=== PATIENT | male | born 1975 | race Caucasian/White ===

== ENCOUNTER 2021-04-01 04:00 | Emergency (ER) | payer MEDICAID, SELFPAY ==
[2021-04-01 04:14] VITALS: BP 131/93; PULSE 104; RESP 16; TEMP 36.6; O2SAT 97; BMI 27.3
[2021-04-01 04:16] LABS: Glucose, Whole Blood 133 mg/dL (60-115)
[2021-04-01 04:20] LABS: Basophils Percent Auto 0.4 % (0-2); Eosinophils Absolute Auto 0.3 X10*3/uL (0.0-0.4); Hematocrit 46.8 % (42.0-52.0); Hemoglobin 15.8 g/dl (14.0-18.0); Imm Gran Abs Auto 0.02 X10*3/uL (0.00-0.03); Imm Gran Pct Auto 0.2 % (0.0-0.4); Lymphocytes Absolute Auto 1.5 X10*3/uL (1.2-4.9); Lymphocytes Percent Auto 18.2 % (20-40); MANUAL DIFF FLAG NO; Mean Corpuscular HGB Conc 33.8 g/dl (31.0-36.0); Mean Corpuscular Hemoglobin 30.5 pg (27.0-33.0); Mean Corpuscular Volume 90.3 fL (80.0-98.0); Mean Platelet Volume 8.9 fL (9.4-12.4); Monocytes Absolute Auto 0.7 X10*3/uL (0.1-1.2); Monocytes Percent Auto 8.3 % (2-11); Neutrophils Absolute Auto 5.8 x10*3/uL (2.0-8.3); Neutrophils Percent Auto 69.9 % (45-73); Platelet Count 269 X10*3/uL (160-400); Red Blood Count 5.18 X10*6/uL (4.60-5.80); Red Cell Distribution Width 13.5 % (11.0-16.0); White Blood Count 8.3 X10*3/uL (4.8-10.8)
[2021-04-01 04:36] LABS: Ethanol < 10 mg/dL
[2021-04-01 04:44] LABS: Alanine Aminotransferase 18 U/L (0-40); Albumin Level 4.4 g/dL (3.5-5.0); Alkaline Phosphatase 80 U/L (39-117); Anion Gap 15 (12-20); Aspartate Amino Transferase 34 U/L (5-37); Bilirubin Total 0.8 mg/dL (0.0-1.0); Blood Urea Nitrogen 14 mg/dL (9-16); Calcium 9.4 mg/dL (8.4-10.2); Carbon Dioxide 27 mmol/L (22-29); Chloride 100 mmol/L (96-108); Creatinine Clr Calc Pharmacy 100.3; Estimated Glomerular Filt Rate > 60; Glucose Random 120 mg/dL (60-115); Potassium 3.6 mmol/L (3.3-5.1); Sodium 138 mmol/L (135-145)
--- NOTE | 2021-04-01 06:02 | ED_ITS ---
HPI - General Adult General Chief complaint: Altered Mental Status Time Seen by Provider: 04/01/21 04:47 Source: patient Mode of arrival: EMS History of Present Illness HPI narrative: 46-year-old male with history of gastric sleeve and states that he was drinking alcohol and taking Ambien this evening and says that he was a little bit out of it but otherwise denies any recent fever, chills, nausea, vomiting, abdominal pain or diarrhea. Patient denies any history of diabetes. EMS reports that patient was found on the street by police ?seeming off?. Related Data Allergies Allergy/AdvReac Type Severity Reaction Status Date / Time No Known Allergies Allergy Verified 04/01/21 04:19 [No Known Allergies*] Review of Systems Review of Systems: Pertinent positives and negatives as stated in HPI 10 point review of systems is otherwise negative. PMFSH Past Medical History Source: nursing notes reviewed Social History Social History Advance Directives: No Physical Exam ED Vital Signs: Vital Signs - 24 hr 04/01/21 04:14 Temperature 98 F Pulse Rate 104 H Respiratory Rate 16 Blood Pressure 131/93 H Pulse Oximetry 97 BMI result Body Mass Index 27.3 VITAL SIGNS: Reviewed. GENERAL: Well developed, well nourished, in no acute distress. HEAD: Normocephalic/atraumatic EYES: PERRLA, EOMI EARS: Ext canals without abnormality OROPHARYNX: no oral lesions noted, posterior pharynx clear LUNGS: Normal breath sounds. No adventitious sounds or accessory muscle use. SpO2<97> CARDIOVASCULAR: Regular rate and rhythm without noted murmurs, no JVD or lower extremity edema. ABDOMEN: Soft, non-tender, non-distended with bowel sounds. MUSCULOSKELETAL: No tenderness, deformities, or effusions noted on gross inspection. EXTREMITIES: No cyanosis, clubbing or edema. SKIN: Inspection of the skin reveals no rashes, NEUROLOGIC: Alert and oriented x 4. Strength and sensation to light touch were grossly intact x 4. Course Course Course Narrative: 46-year-old male with history and clinical presentation consistent with mixture of Ambien and alcohol likely leading to mild altered mental status and given underlying bariatric surgery may have experienced a decrease in blood sugar. Patient is otherwise alert and oriented, denies any constitutional symptoms and on review of all investigations there are no acute findings and patient is otherwise discharged home in stable condition, tolerating oral intake. Medical Decision Making Lab Data Result diagrams: 04/01/21 04:15 04/01/21 04:15 Labs: Lab Results 04/01/21 04/01/21 04/01/21 Range/Units 04:11 04:15 04:15 WBC 8.3 (4.8-10.8) X10*3/uL RBC 5.18 (4.60-5.80) X10*6/uL Hgb 15.8 (14.0-18.0) g/dl Hct 46.8 (42.0-52.0) % MCV 90.3 (80.0-98.0) fL MCH 30.5 (27.0-33.0) pg MCHC 33.8 (31.0-36.0) g/dl RDW 13.5 (11.0-16.0) % Plt Count 269 (160-400) X10*3/uL MPV 8.9 L (9.4-12.4) fL Immature Gran % (Auto) 0.2 (0.0-0.4) % Neut % (Auto) 69.9 (45-73) % Lymph % (Auto) 18.2 L (20-40) % Falls % (Auto) 8.3 (2-11) % Eos % (Auto) 3.0 (0-4) % Baso % (Auto) 0.4 (0-2) % Lymph # (Auto) 1.5 (1.2-4.9) X10*3/uL Falls # (Auto) 0.7 (0.1-1.2) X10*3/uL Eos # (Auto) 0.3 (0.0-0.4) X10*3/uL Baso # (Auto) 0.0 (0.0-0.2) X10*3/uL Abs Immat Gran (auto) 0.02 (0.00-0.03) X10*3/uL Absolute Neuts (auto) 5.8 (2.0-8.3) x10*3/uL Absolute Nucleated RBC 0.000 (0.0-0.012) X10*3/uL Nucleated RBC % (auto) 0.0 (0.0-0.2) /100WBC Sodium 138 (135-145) mmol/L Potassium 3.6 (3.3-5.1) mmol/L Chloride 100 (96-108) mmol/L Carbon Dioxide 27 (22-29) mmol/L Anion Gap 15 (12-20) BUN 14 (9-16) mg/dL Creatinine 0.88 (0.5-1.4) mg/dL Estim Creat Clear Calc 100.3 Estimated GFR > 60 POC Glucose 133 H (60-115) mg/dL Random Glucose 120 H (60-115) mg/dL Calcium 9.4 (8.4-10.2) mg/dL Total Bilirubin 0.8 (0.0-1.0) mg/dL AST 34 (5-37) U/L ALT 18 (0-40) U/L Alkaline Phosphatase 80 (39-117) U/L Total Protein 7.0 (6.5-8.0) g/dL Albumin 4.4 (3.5-5.0) g/dL Ethyl Alcohol mg/dL 04/01/21 Range/Units 04:15 WBC (4.8-10.8) X10*3/uL RBC (4.60-5.80) X10*6/uL Hgb (14.0-18.0) g/dl Hct (42.0-52.0) % MCV (80.0-98.0) fL MCH (27.0-33.0) pg MCHC (31.0-36.0) g/dl RDW (11.0-16.0) % Plt Count (160-400) X10*3/uL MPV (9.4-12.4) fL Immature Gran % (Auto) (0.0-0.4) % Neut % (Auto) (45-73) % Lymph % (Auto) (20-40) % Falls % (Auto) (2-11) % Eos % (Auto) (0-4) % Baso % (Auto) (0-2) % Lymph # (Auto) (1.2-4.9) X10*3/uL Falls # (Auto) (0.1-1.2) X10*3/uL Eos # (Auto) (0.0-0.4) X10*3/uL Baso # (Auto) (0.0-0.2) X10*3/uL Abs Immat Gran (auto) (0.00-0.03) X10*3/uL Absolute Neuts (auto) (2.0-8.3) x10*3/uL Absolute Nucleated RBC (0.0-0.012) X10*3/uL Nucleated RBC % (auto) (0.0-0.2) /100WBC Sodium (135-145) mmol/L Potassium (3.3-5.1) mmol/L Chloride (96-108) mmol/L Carbon Dioxide (22-29) mmol/L Anion Gap (12-20) BUN (9-16) mg/dL Creatinine (0.5-1.4) mg/dL Estim Creat Clear Calc Estimated GFR POC Glucose (60-115) mg/dL Random Glucose (60-115) mg/dL Calcium (8.4-10.2) mg/dL Total Bilirubin (0.0-1.0) mg/dL AST (5-37) U/L ALT (0-40) U/L Alkaline Phosphatase (39-117) U/L Total Protein (6.5-8.0) g/dL Albumin (3.5-5.0) g/dL Ethyl Alcohol < 10 mg/dL Discharge Plan Discharge Clinical Impression: Change in mental status, Ambien use disorder, mild, Alcohol intake above recommended sensible limits, Hypoglycemia Patient Disposition: Home, Self-Care Instructions: Non-diabetic Hypoglycemia (ED) Additional Instructions: 1. Resume all home medications as prescribed. Avoid mixing alcohol and Ambien. 2. Follow-up with your primary care provider for further workup and evaluation of your episode of low blood sugar. Return to the ER from worsening symptoms.
== END 2021-04-01 06:20 | disposition home or self-care (01) ==
PROVIDERS: Emergency Provider Student in an Organized Health Care Education/Training Program
DX: R41.82 Altered mental status, unspecified (principal); E16.2 Hypoglycemia, unspecified; F10.20 Alcohol dependence, uncomplicated; Y90.0 Blood alcohol level of less than 20 mg/100 ml; Z98.84 Bariatric surgery status; Z79.899 Other long term (current) drug therapy
CPT/HCPCS: 36415; 80053; 82077; 82947; 85025; 99283

== ENCOUNTER 2022-03-15 11:09 | Emergency (ER) | payer MEDICAID, SELFPAY ==
[2022-03-15 11:23] VITALS: BP 135/90; BP 150/82; PULSE 90; PULSE 94; RESP 18; TEMP 37.1; O2SAT 100; BMI 23.2
[2022-03-15 14:45] VITALS: BP 105/64; PULSE 74; RESP 18; O2SAT 96
--- NOTE | 2022-03-15 14:45 | PC.NURSE ---
patient sleeping. chest rise and fall equal and unlabored.
--- NOTE | 2022-03-15 14:52 | ED.OVERDOSE ---
HPI - Overdose General Chief Complaint: ETOH/Substance Use Stated Complaint: HEROIN USE,NOT OD,WANTS EVAL,NO NARCAN PER EMS Time Seen by Provider: 03/15/22 13:02 Source: patient Mode of arrival: EMS History of Present Illness HPI Narrative: 47-year-old male who is brought in by EMS for apparent overdose. He denies any suicidal ideation and is declining any detox at this time. He states that he simply ?over did it?. Related Data Allergies Allergy/AdvReac Type Severity Reaction Status Date / Time No Known Allergies Allergy Verified 03/15/22 11:26 [No Known Allergies*] Review of Systems Review of Systems: Pertinent positives and negatives as stated in HPI PMFSH Past Medical History Source: nursing notes reviewed Physical Exam Vital Signs: Vital Signs: Last Vital Signs Temp 98.7 F 03/15/22 11:23 Pulse 74 03/15/22 14:45 Resp 18 03/15/22 14:45 BP 105/64 03/15/22 14:45 Pulse Ox 96 03/15/22 14:45 O2 Del Method 03/15/22 14:45 BMI result Body Mass Index 23.2 VITAL SIGNS: Reviewed. GENERAL: Well developed, well nourished, in no acute distress. HEAD: Normocephalic/atraumatic EYES: PERRLA, EOMI EARS: Ext canals without abnormality NOSE: Nares patent bilateral OROPHARYNX: no oral lesions noted, posterior pharynx clear NECK: Supple, no adenopathy LUNGS: Normal breath sounds. No adventitious sounds or accessory muscle use. SpO2<96> CARDIOVASCULAR: Regular rate and rhythm without noted murmurs ABDOMEN: Soft, non-tender, non-distended with bowel sounds. MUSCULOSKELETAL: No tenderness, deformities, or effusions noted on gross inspection. EXTREMITIES: No cyanosis, clubbing or edema. SKIN: Inspection of the skin reveals no rashes NEUROLOGIC: Alert and oriented x 3. Strength and sensation to light touch were grossly intact x 4. Medical Decision Making Medical Decision Making MDM Narrative: 47-year-old male with accidental overdose with heroin, no intent for self-harm, and is declined detox at this time. He is otherwise hemodynamically stable and will be sent home with home Narcan. Differential Diagnosis Differential Diagnoses: The differential diagnosis associated with the presentation includes Please see the discussion above External Record Review External record reviewed: Outpatient record and Prior outpatient labs Discharge Plan Discharge Clinical Impression: Heroin overdose Patient Disposition: Home, Self-Care Instructions: Adult Overdose (ED) Additional Instructions: If at any time you wish to pursue detox please do not hesitate to return here and we will help you.
--- NOTE | 2022-03-15 15:10 | MHC.RECOVRN ---
This content writer met w/ patient, patient sleeping in bed, patient awake to verbal stimuli. Patient reports primary substance is ETOH, patient states occasionally uses 1/2 bag heroin IN. Patient reports drinking 1 pint ETOH daily. Patient states has a hx of ETOH withdrawals, tremor, anxiety. Patient reports no overdoses. Patient declines detox at this time. This content writer and patient discussed harm reduction strategies, overdose prevention, detox, medications. Patient verbalized understanding. Resources left at bedside.
[2022-03-15] MEDS: Naloxone HCl Nasal TAKE HOME 4 MG SPRAY NOSTRILALT (15:33)
== END 2022-03-15 16:07 | disposition home or self-care (01) ==
PROVIDERS: Emergency Provider Student in an Organized Health Care Education/Training Program
DX: F11.988 Opioid use, unspecified with other opioid-induced disorder (principal); T40.1X1A Poisoning by heroin, accidental (unintentional), initial encounter; Y92.9 Unspecified place or not applicable
CPT/HCPCS: 99283

== ENCOUNTER 2022-12-31 04:40 | Emergency (ER) | payer MEDICAID, SELFPAY ==
--- NOTE | ~2022-12-31 | XR_ITS ---
EXAMINATION: XR HIP, RIGHT , AP pelvis CLINICAL INFORMATION: Fall COMPARISON: None available at the time of this dictation. TECHNIQUE: Frontal and lateral views of the hip acquired. , AP pelvis FINDINGS: There is no evidence of acute fracture or dislocation. There are mild degenerative arthritic changes of the hip evident by sclerotic changes of the acetabular roof and narrowing of the joint space. Mild degenerative changes of the symphysis pubis. Mild degenerative changes of the SI joints. Adjacent pubic rami are intact. Surrounding soft tissues are unremarkable. XR/XR hip RT w [id number] IMPRESSION: Mild degenerative arthritis. No fracture
[2022-12-31 04:56] VITALS: BP 140/98; PULSE 72; O2SAT 95; BMI 24.2
[2022-12-31 04:59] VITALS: BP 128/77; PULSE 92; RESP 18; TEMP 37.1; O2SAT 97
--- NOTE | 2022-12-31 04:59 | ED.EXTPRO ---
HPI - Extremity Problem General Chief complaint: Fall Stated complaint: leg pain Time Seen by Provider: 12/31/22 04:59 Source: patient Mode of arrival: ambulatory Limitations: no limitations History of Present Illness HPI Narrative: Patient's history of heroin and alcohol abuse was going upstairs at work 5 days ago when noticed pain in the right hip rating down to the knee no back pain no injury patient did not fall says that pain increases on ambulate and is not getting better Related Data Previous Rx's Medication Instructions Recorded cyclobenzaprine 10 mg tablet 10 mg PO Q8H #20 tabs 12/31/22 ibuprofen 600 mg tablet 600 mg PO Q6H PRN fever or pain 12/31/22 #30 tabs Allergies Allergy/AdvReac Type Severity Reaction Status Date / Time Sulfa (Sulfonamide Allergy Rash Verified 12/31/22 04:46 Antibiotics) COUNTS INCLUDE 234 BEDS AT [facility] Social History Social History Alcohol intake: current Alcohol intake frequency: a few times a week Smoked in Last 30 Days: No Use of substances other than those prescribed or required for medical reasons: No Advance Directives: No Advance Directives Information Provided: Yes Physical Exam Vital Signs: Vital Signs: Last Vital Signs Temp 98.7 F 12/31/22 04:59 Pulse 92 12/31/22 04:59 Resp 18 12/31/22 04:59 BP 128/77 12/31/22 04:59 Pulse Ox 97 12/31/22 04:59 O2 Del Method Room Air 12/31/22 04:59 BMI result Body Mass Index 24.2 Appearance: Alert. Oriented X3. No acute distress. ENT: Pharynx normal. Oral Mucosa moist Neck: Normal inspection. Neck supple. CVS: Normal heart rate and rhythm. Pulses normal. Respiratory: No respiratory distress. Equal air entry bilateral, Abdomen: Soft and nontender. Bowel sounds are present Skin: Skin warm and dry. Normal skin color. Normal skin turgor. Extremities: No lower extremity edema. No calf tenderness tenderness and right groin area increases on flexion Neuro: Oriented X 3. No motor deficit. No sensory deficit.No cerebellar signs , cranial nerves II-XII intact Medications Administered Discontinued Medications Generic Name Dose Route Start Last Admin Trade Name Freq PRN Reason Stop Dose Admin Ketorolac Tromethamine 60 mg 12/31/22 05:55 12/31/22 06:38 Ketorolac Tromethamine 60 Mg/2 Ml Vial IM 12/31/22 05:56 60 mg ONCE ONE Administration Medical Decision Making Medical Decision Making [facility] Narrative: Patient's x-ray negative for fracture clinically patient has right groin strain discharge patient home on muscle relaxants and pain medication Differential Diagnosis Differential Diagnoses: The differential diagnosis associated with the presentation includes Fracture/ groin strain Independent Interpretation I performed an independent interpretation of an: Plain X-Ray Interpretation: Negative Discharge Plan Discharge Clinical Impression: Strain of muscle of right groin region Patient Disposition: Home, Self-Care Instructions: Groin Strain (ED) Additional Instructions: Take pain medication and muscle relaxants as prescribed Rest, apply ice your right leg Your x-ray negative for fracture Prescriptions: New cyclobenzaprine 10 mg tablet 10 mg PO Q8H Qty: 20 0RF ibuprofen 600 mg tablet 600 mg PO Q6H PRN (Reason: fever or pain) Qty: 30 0RF
[2022-12-31] MEDS: Ketorolac Tromethamine 60 MG/2 ML VIAL IM (06:38)
--- NOTE | 2022-12-31 07:02 | PC.NURSE ---
Pt alert and oriented X4, given and verbalized understanding of discharge instructions. Patient given crutches and provided education. Pt reports he does not have a ride, will discuss with charge to try and assist.
== END 2022-12-31 07:04 | disposition home or self-care (01) ==
PROVIDERS: Emergency Provider Internal Medicine
DX: S39.011A Strain of muscle, fascia and tendon of abdomen, initial encounter (principal); W17.89XA Other fall from one level to another, initial encounter; Y93.9 Activity, unspecified; Y92.9 Unspecified place or not applicable; Y99.9 Unspecified external cause status
CPT/HCPCS: 73502; 96372; 99284; J1885

== ENCOUNTER 2023-05-23 19:51 | Emergency (ER) | payer OTHER, SELFPAY ==
--- NOTE | ~2023-05-23 | CT_ITS ---
EXAMINATION: CT MAXILLOFACIAL WITHOUT CONTRAST CLINICAL INFORMATION: Dental abscess of the right upper jaw. Pain and swelling. COMPARISON: None available. TECHNIQUE: Multidetector helical imaging was performed in the axial plane with generation of coronal and sagittal reformatted images. This CT examination was performed using dose optimization techniques as appropriate, variously including the following: *Automated exposure control *Adjustment of mA and/or kV according to patient size (this includes techniques or standardized protocols for targeted exams where dose is matched to indication/reason for exam; i.e. extremities or head) *Use of iterative reconstruction technique DLP: 536 mGy-cm FINDINGS: FRONTAL SINUSES AND DRAINAGE PATHWAYS: The frontal sinuses are clear. The frontoethmoidal recesses are patent. MAXILLARY SINUSES AND DRAINAGE PATHWAYS: Near complete opacification of the right maxillary sinus. Complete opacification of the left maxillary ostium/infundibulum. The left maxillary sinus is clear. The left maxillary ostium/infundibulum are patent. ETHMOID SINUSES: Moderate mucosal thickening of the right-sided anterior ethmoid air cells. Mild mucosal thickening of the remaining ethmoid air cells. The ethmoid roofs appear symmetric and intact. SPHENOID SINUS AND DRAINAGE PATHWAYS: Mild mucosal thickening of the sphenoid sinus. The sphenoethmoidal recesses are patent. The carotid canals are normally covered by bone. NASAL PASSAGE: Mild mucosal thickening of the nasal passages. Mild rightward nasal septal deviation. ORBITS: Normal appearance of the osseous orbits. The lamina papyracea are intact. No significant preseptal or retrobulbar edema. Normal appearance of the globes. Normal symmetric appearance of the extraocular musculature. No abnormalities of the intraconal or extraconal adipose tissue. Normal appearance of the optic nerve sheaths. Normal appearance of the lacrimal glands. No orbital fluid collections. No abnormalities of the orbital apices. TEMPOROMANDIBULAR JOINTS: The temporomandibular joints remain well aligned. Normal appearance of the temporomandibular joints. ADDITIONAL RELEVANT FINDINGS: No evidence of maxillofacial bone fractures. The zygomatic arches remain intact. No nasal bone fracture. No evidence of mandibular or maxillary fracture. No significant maxillary/mandibular periapical disease. The visualized mastoid air cells and middle ear cavities remain well aerated. Limited evaluation of the intracranial structures without significant abnormalities. Periapical lucencies associated with the maxillary 1st molars bilaterally. There is osseous uncovering and disruption of the outer cortical table along the anterior buccal root of the maxillary right 1st molar. Moderate fat stranding within the right premaxillary, retromaxillary, and buccal soft tissues without demonstrated discrete drainable fluid collection. The left-sided premaxillary and retromaxillary adipose tissue is clear. The pterygopalatine fossa, temporal fossa, and parapharyngeal adipose tissue is maintained. No demonstrated soft tissue abnormalities within the intrinsic tissues of the tongue. CT/CT facial bones wo IV con IMPRESSION: Periapical disease associated with the maxillary 1st molars bilaterally. There is osseous uncovering and disruption of the outer cortical table along the anterior buccal root of the maxillary right 1st molar. Moderate fat stranding within the right premaxillary, retromaxillary, and buccal soft tissues without demonstrated discrete drainable fluid collection. Near complete opacification of the right maxillary sinus consistent with odontogenic sinusitis. There is also moderate mucosal thickening of the right-sided anterior ethmoid air cells.
[2023-05-23 19:57] VITALS: BP 152/96; PULSE 90; O2SAT 99
[2023-05-23 20:42] VITALS: BP 159/101; PULSE 77; RESP 20; TEMP 37.1; O2SAT 99; BMI 23.8
--- NOTE | 2023-05-23 20:51 | ED.DENTAL ---
HPI - Dental/Oral General Chief complaint: Dental/Oral Stated complaint: ABSCESS ON R THIGH,SWELLING Time Seen by Provider: 05/23/23 22:28 Related Data Previous Rx's ?Medication ?Instructions ?Recorded cyclobenzaprine 10 mg tablet 10 mg PO Q8H #20 tabs 12/31/22 ibuprofen 600 mg tablet 600 mg PO Q6H PRN fever or pain 12/31/22 #30 tabs amoxicillin 875 mg-potassium 1 tab PO BID #20 tabs 05/23/23 clavulanate 125 mg tablet tramadol 50 mg tablet 50 mg PO Q6H PRN pain #20 tabs 05/23/23 Allergies Allergy/AdvReac Type Severity Reaction Status Date / Time Sulfa (Sulfonamide Allergy Rash Verified 05/23/23 20:47 Antibiotics) [facility] Social History Social History Alcohol intake: current Alcohol intake frequency: a few times a week Advance Directives: No Advance Directives Information Provided: No Physical Exam Vital Signs: Vital Signs: Last Vital Signs Temp 97.6 F 05/24/23 02:32 Pulse 84 05/24/23 02:32 Resp 17 05/24/23 02:32 BP 150/92 H 05/24/23 02:32 Pulse Ox 95 05/24/23 02:32 O2 Del Method Room Air 05/24/23 02:32 BMI result Body Mass Index 23.8 Course Course Course Narrative: RME:?48 yo male here via EMS for eval of dental pain/ abscess beginning yesterday, worsening since onset. hx of dental abscesses. Has been trying to get [facility]. no known broken teeth. asking for strong pain meds in ED. +right sided facial swelling, trismus ct facial bones ordered Full HPI, ROS and PE to be performed by the primary ED provider. Medications Administered Discontinued Medications Generic Name Dose Route Start Last Admin Trade Name Freq PRN Reason Stop Dose Admin Acetaminophen 975 mg 05/23/23 20:45 05/23/23 20:52 Acetaminophen 325 Mg Tablet PO 05/23/23 20:46 975 mg ONCE ONE Administration Amoxicillin/Clavulanate Potassium 875 mg 05/23/23 22:47 05/23/23 23:01 Amoxicillin/Potassium Clav 875 Mg Tablet PO 05/23/23 22:48 875 mg ONCE ONE Administration Lidocaine HCl 6 ml 05/23/23 22:46 05/23/23 23:02 Lidocaine Hcl 1 % Mpf 2 Ml Vial INFILTRATI 05/23/23 22:47 6 ml ONCE ONE Administration Oxycodone HCl 10 mg 05/23/23 23:22 05/24/23 00:15 Oxycodone Hcl Immed Release 5 Mg Tablet PO 05/23/23 23:23 10 mg ONCE ONE Administration Discharge Plan Discharge Clinical Impression: Dental abscess Patient Disposition: Home, Self-Care Instructions: Dental Abscess (ED) Additional Instructions: Take antibiotics and pain medication as prescribed Follow-up with your dentist Prescriptions: New amoxicillin-pot clavulanate 875-125 mg tablet 1 tab PO BID Qty: 20 0RF tramadol 50 mg tablet 50 mg PO Q6H PRN (Reason: pain) Qty: 20 0RF No Action cyclobenzaprine 10 mg tablet 10 mg PO Q8H Qty: 20 0RF ibuprofen 600 mg tablet 600 mg PO Q6H PRN (Reason: fever or pain) Qty: 30 0RF Interventions: ED Discharge Assessment Last Done: 05/24/23 02:32 Discharge Date/Time: 05/24/23 00:15 Print Language: Greek
[2023-05-23] MEDS: Acetaminophen 325 MG TABLET 975 MG PO (20:52)
[2023-05-23 22:54] VITALS: BP 141/79; PULSE 97; RESP 17; TEMP 36.8; O2SAT 98
[2023-05-23] MEDS: Amoxicillin/Potassium Clav 875 MG TABLET PO (23:01)
[2023-05-23] MEDS: Lidocaine HCl 1 % MPF 2 ML VIAL 6 ML INFILTRATI (23:02)
--- NOTE | 2023-05-23 23:25 | ED.DENTAL ---
HPI - Dental/Oral General Chief complaint: Dental/Oral Stated complaint: ABSCESS ON R THIGH,SWELLING Time Seen by Provider: 05/23/23 22:28 Source: patient Mode of arrival: ambulatory Limitations: no limitations History of Present Illness HPI Narrative: patient with dental caries noticed increased pain in the right upper mandibular area for last few days got worse in last 2 days with swelling of the maxillary area of the right side no fever no chills Related Data Previous Rx's ?Medication ?Instructions ?Recorded cyclobenzaprine 10 mg tablet 10 mg PO Q8H #20 tabs 12/31/22 ibuprofen 600 mg tablet 600 mg PO Q6H PRN fever or pain 12/31/22 #30 tabs amoxicillin 875 mg-potassium 1 tab PO BID #20 tabs 05/23/23 clavulanate 125 mg tablet tramadol 50 mg tablet 50 mg PO Q6H PRN pain #20 tabs 05/23/23 Allergies Allergy/AdvReac Type Severity Reaction Status Date / Time Sulfa (Sulfonamide Allergy Rash Verified 05/23/23 20:47 Antibiotics) Review of Systems Review of Systems: Yes all other systems are reviewed and are negative [facility] Social History Social History Alcohol intake: current Alcohol intake frequency: a few times a week Advance Directives: No Advance Directives Information Provided: No Physical Exam Vital Signs: Vital Signs: Last Vital Signs Temp 98.2 F 05/23/23 22:54 Pulse 97 05/23/23 22:54 Resp 17 05/23/23 22:54 BP 141/79 H 05/23/23 22:54 Pulse Ox 98 05/23/23 22:54 O2 Del Method Room Air 05/23/23 22:54 BMI result Body Mass Index 23.8 HEENT: Teeth image: 1. Tenderness at tooth 3. With gum swelling fluctuance with dental caries Medications Administered Discontinued Medications Generic Name Dose Route Start Last Admin Trade Name Freq PRN Reason Stop Dose Admin Acetaminophen 975 mg 05/23/23 20:45 05/23/23 20:52 Acetaminophen 325 Mg Tablet PO 05/23/23 20:46 975 mg ONCE ONE Administration Amoxicillin/Clavulanate Potassium 875 mg 05/23/23 22:47 05/23/23 23:01 Amoxicillin/Potassium Clav 875 Mg Tablet PO 05/23/23 22:48 875 mg ONCE ONE Administration Lidocaine HCl 6 ml 05/23/23 22:46 05/23/23 23:02 Lidocaine Hcl 1 % Mpf 2 Ml Vial INFILTRATI 05/23/23 22:47 6 ml ONCE ONE Administration Medical Decision Making Medical Decision Making [facility] Narrative: Patient with right 3rd molar periapical abscess with surrounding cellulitis infraorbital nerve block was given and needle aspiration was done about 1 cc pus was drained patient felt much better after the procedure antibiotic Augmentin was given patient advised to follow with dentist Differential Diagnosis Differential Diagnoses: The differential diagnosis associated with the presentation includes Dental abscess/maxillary sinus abscess Independent Interpretation I performed an independent interpretation of an: CT Scan Radiology Impression Discussion of test interpretation with radiology: I have reviewed the radiologist's reading. Procedures Abscess I/D Site: other (First upper molar) Side (if applicable): right Technique: needle aspiration Amount of fluid expressed (mL): 1 Sent for culture/gram staining?: No Nerve Block Nerve Block 1: Local Anesthetic: lidocaine 1% Amount of anesthesia used (mL): 4 Side: right Intraoral Nerve Block: infraorbital Procedure Successful: Yes Patient Tolerated Procedure: well Complications: none Discharge Plan Discharge Clinical Impression: Dental abscess Patient Disposition: Home, Self-Care Instructions: Dental Abscess (ED) Additional Instructions: Take antibiotics and pain medication as prescribed Follow-up with your dentist Prescriptions: New amoxicillin-pot clavulanate 875-125 mg tablet 1 tab PO BID Qty: 20 0RF tramadol 50 mg tablet 50 mg PO Q6H PRN (Reason: pain) Qty: 20 0RF No Action cyclobenzaprine 10 mg tablet 10 mg PO Q8H Qty: 20 0RF ibuprofen 600 mg tablet 600 mg PO Q6H PRN (Reason: fever or pain) Qty: 30 0RF Print Language: Swedish
[2023-05-24] MEDS: oxyCODONE HCl Immed Release 5 MG TABLET 10 MG PO (00:15)
[2023-05-24 00:16] VITALS: BP 150/92; PULSE 84; RESP 17; TEMP 36.4; O2SAT 95
[2023-05-24 02:32] VITALS: BP 150/92; PULSE 84; RESP 17; TEMP 36.4; O2SAT 95
== END 2023-05-24 00:15 | disposition home or self-care (01) ==
PROVIDERS: Emergency Provider Internal Medicine; PCP Physician Assistant
DX: K12.2 Cellulitis and abscess of mouth (principal); Z79.899 Other long term (current) drug therapy
CPT/HCPCS: 40800; 70486; 99283; 99284

== ENCOUNTER 2023-06-29 15:15 | Emergency (ER) | payer MEDICAID, SELFPAY ==
[2023-06-29 15:46] VITALS: BP 129/99; PULSE 66; RESP 16; TEMP 37; O2SAT 98; BMI 24.0
--- NOTE | 2023-06-29 15:46 | ED.GENADULT ---
HPI - General Adult General Chief complaint: General Medical Stated complaint: need meds refillled Time Seen by Provider: 06/29/23 16:32 Source: patient Mode of arrival: ambulatory Limitations: no limitations History of Present Illness HPI narrative: Patient is a 48-year-old male with history of Ambien use disorder presenting to the emergency department requesting refills of his medications. Patient [facility] not have [facility] at this time and is unable to get there. He is specifically requesting refills on omeprazole, trazodone, Adderall and Ambien. He denies any acute physical complaints. MD complaint: Medication refill Related Data Previous Rx's ?Medication ?Instructions ?Recorded cyclobenzaprine 10 mg tablet 10 mg PO Q8H #20 tabs 12/31/22 ibuprofen 600 mg tablet 600 mg PO Q6H PRN fever or pain 12/31/22 #30 tabs amoxicillin 875 mg-potassium 1 tab PO BID #20 tabs 05/23/23 clavulanate 125 mg tablet tramadol 50 mg tablet 50 mg PO Q6H PRN pain #20 tabs 05/23/23 omeprazole 20 mg capsule,delayed 20 mg PO DAILY #7 caps 06/29/23 release Allergies Allergy/AdvReac Type Severity Reaction Status Date / Time Sulfa (Sulfonamide Allergy Rash Verified 06/29/23 15:48 Antibiotics) Review of Systems Review of Systems: As per HPI. Yes all other systems are reviewed and are negative Constitutional: Constitutional: Reports as per HPI [facility] Social History Social History Alcohol intake: current Alcohol intake frequency: a few times a week Advance Directives: No Advance Directives Information Provided: No Do you have a plan to hurt others: No Plan Physical Exam ED Vital Signs: Vital Signs - 24 hr 06/29/23 15:46 Temperature 98.6 F Pulse Rate 66 Respiratory Rate 16 Blood Pressure 129/99 H Pulse Oximetry 98 Oxygen Delivery Method Room Air BMI result Body Mass Index 24.0 Vital signs have been reviewed and appear to be correct. Blood pressure normal. Heart rate normal. Respiratory rate normal. Temperature normal. Oxygen saturation normal. Const General: cooperative, healthy appearing and no acute distress Orientation/consciousness: oriented to person, oriented to place, oriented to time and patient oriented x3 Limitations: no limitations HENMT Head: Yes normocephalic and Yes atraumatic Ears: external ears normal General nose exam: Normal external nose present Face and sinus: Yes face symmetric Mouth: oropharynx normal and moist mucous membranes Throat: Yes uvula midline Eyes Pupils: Equal, round and reactive pupils present Neck Neck: Yes normal visual inspection and Yes supple Resp Effort & Inspection: normal respiratory effort and able to speak in complete sentences Auscultation: clear to auscultation bilaterally Cardio Rate: regular rate Rhythm: regular rhythm Heart sounds: S1 normal heart sound present and S2 normal heart sound present Skin General skin exam: elasticity normal and turgor normal Neuro General: oriented to person, oriented to place, oriented to time, patient oriented x3, moves all extremities, no focal motor deficits and CN's II-XI intact bilaterally Cranial nerves: Yes Equal, round and reactive pupils present Cognition (Neuro): normal cognition Extrem General: Yes full ROM, Yes no pedal edema and Yes no calf tenderness Psych Mental Status: mental status grossly normal Affect: normal affect Thought process: Normal thought process present Course Course Course Narrative: RME performed by Harriet Maki PA-C. Patient is a 48 year old assigned male at presenting to the emergency department requesting medication refills. Patient states that he needs Trazadone, ambian, and adderall refilled. Patient states that [facility] his [facility] and can't make it out there. Patient placed back in the waiting room pending room availability. Medical Decision Making Medical Decision Making [facility] Narrative: Patient is a 48-year-old male with history of Ambien use disorder presenting to the emergency department requesting refills of his medications. On exam patient is awake, A+Ox3, VS WNL, afebrile, normal neurological exam without focal deficits, physical exam findings as above. Given reported symptoms and physical exam findings, initial differential includes medication refill, medication misuse. Review of [facility] shows that patient filled a 30 day prescription for Ambien on 06/08, has been out of his Adderall for 2 weeks, unable to confirm history of trazodone prescription in the past. Discussed with patient that I am willing to send prescription for omeprazole but I am not willing to refill any of his other medications at this time. Ad[facility]. Patient verbalized understanding of this. Return precautions discussed. Prescription for omeprazole sent to pharmacy. Differential Diagnosis Differential Diagnoses: The differential diagnosis associated with the presentation includes as per [facility] External Record Review External record reviewed: Inpatient record, Office record and Outpatient record Prescription Management I considered prescription management with: Other Discharge Plan Discharge Clinical Impression: Medication refill Patient Disposition: Home, Self-Care Instructions: Medicine Refill (ED) Additional Instructions: You were evaluated in the emergency department today for medication refill. A prescription for omeprazole was sent to the pharmacy. Please follow-up as appropriate with your primary care provider. Return to the emergency department with any new or concerning symptoms. Prescriptions: New omeprazole 20 mg capsule,delayed release(DR/EC) 20 mg PO DAILY Qty: 7 0RF No Action amoxicillin-pot clavulanate 875-125 mg tablet 1 tab PO BID Qty: 20 0RF tramadol 50 mg tablet 50 mg PO Q6H PRN (Reason: pain) Qty: 20 0RF cyclobenzaprine 10 mg tablet 10 mg PO Q8H Qty: 20 0RF ibuprofen 600 mg tablet 600 mg PO Q6H PRN (Reason: fever or pain) Qty: 30 0RF Interventions: ED Discharge Assessment Last Done: 06/29/23 16:57 Print Language: Greenlandic
[2023-06-29 16:57] VITALS: BP 129/99; PULSE 66; RESP 16; TEMP 37; O2SAT 98
== END 2023-06-29 17:02 | disposition home or self-care (01) ==
LOC: HO.ED 16:54
PROVIDERS: Emergency Provider Emergency Medicine
DX: Z76.0 Encounter for issue of repeat prescription (principal)
CPT/HCPCS: 99282

== ENCOUNTER 2023-08-09 11:43 | Emergency (ER) | payer MEDICAID, SELFPAY ==
[2023-08-09 12:06] VITALS: BP 133/85; PULSE 66; RESP 16; TEMP 36.7; O2SAT 99; BMI 22.4
--- NOTE | 2023-08-09 12:09 | ED_ITS ---
HPI - General Adult General Chief complaint: General Medical Stated complaint: Shot of ambilify Time Seen by Provider: 08/09/23 12:26 Source: patient Mode of arrival: ambulatory Limitations: no limitations History of Present Illness ED Provider: Harriet Maki PA-C HPI narrative: Patient is a 48 year old assigned male at with a history of Schizophrenia presenting to the emergency department today requesting a shot of Abilify. 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 Patient states that his last Abilify injection was 3 months ago, at an office visit in the [place]. Patient states that his new provider at the [facility] is trying to get his insurance to approve the injectable Abilify but they are struggling to do so. Patient states that he was on the oral dose before but it was less effective than the injectable. Patient denies any thoughts of hurting himself or others, hearing or seeing things others do not hear or see, dizziness, lightheadedness, abdominal pain, nausea, vomiting, fever, chills, blurry vision, double vision, loss of vision, chest pain, difficulty breathing, shortness of breath, back pain, night sweats, pain with urination, increased urinary frequency, increased urinary urgency, blood in his urine or stool, syncope or a near syncopal episode, recent trauma or falls, bowel incontinence, bladder incontinence, or any other complaints at this time. Relieving factors: none Exacerbating factors: none Associated symptoms: denies other symptoms Treatments prior to arrival: none Related Data Previous Rx's ?Medication ?Instructions ?Recorded cyclobenzaprine 10 mg tablet 10 mg PO Q8H #20 tabs 12/31/22 ibuprofen 600 mg tablet 600 mg PO Q6H PRN fever or pain 12/31/22 #30 tabs amoxicillin 875 mg-potassium 1 tab PO BID #20 tabs 05/23/23 clavulanate 125 mg tablet tramadol 50 mg tablet 50 mg PO Q6H PRN pain #20 tabs 05/23/23 omeprazole 20 mg capsule,delayed 20 mg PO DAILY #7 caps 06/29/23 release aripiprazole 5 mg tablet (Abilify) 5 mg PO DAILY #30 tabs 08/09/23 Allergies Allergy/AdvReac Type Severity Reaction Status Date / Time Sulfa (Sulfonamide Allergy Rash Verified 08/09/23 12:12 Antibiotics) Review of Systems 2 Constitutional: Constitutional: Reports no additional constitutional complaints, Denies chills, Denies fever(s) and Denies night sweats Eyes: Eyes: Reports no additional eye complaints, Denies blurry vision, Denies change in vision, Denies diplopia, Denies eye discharge, Denies loss of vision and Denies eye pain ENT: Denies dizziness Cardiovascular: Cardiovascular: Reports no additional cardiovascular complaints, Denies chest pain, Denies lightheadedness, Denies Loss of Consciousness and Denies dyspnea Respiratory: Respiratory: Reports no additional respiratory complaints and Denies dyspnea Gastrointestinal: Gastrointestinal: Reports no additional gastrointestinal complaints, Denies abdominal pain, Denies melena, Denies hematochezia, Denies change in bowel habits and Denies change in stool character Genitourinary: Genitourinary: Reports no additional male genitourinary complaints, Denies hematuria, Denies oliguria, Denies difficulty urinating, Denies dysuria, Denies urinary frequency, Denies urinary hesitancy, Denies urinary incontinence and Denies urinary urgency Musculoskeletal: Musculoskeletal: Reports no additional musculoskeletal complaints, Denies numbness and Denies tingling Neurologic: Denies dizziness, Denies loss of vision, Denies numbness and Denies tingling Psychiatric: Psychiatric: Reports no additional psychiatric complaints Endocrine: Endocrine: Reports no additional endocrine complaints Hematologic/Lymphatic: Hematologic/Lymphatic: Reports no additional hematologic/lymphatic complaints Allergic/Immunologic: Allergic/Immunologic: Reports no additional allergic/immunologic complaints [facility] Past Medical History Attestation statement: The following information was validated with the patient. Source: old records reviewed and nursing notes reviewed Social History Social History Alcohol intake: current Alcohol intake frequency: a few times a week Advance Directives: No Advance Directives Information Provided: Yes Do you have a plan to hurt others: No Plan Physical Exam ED Vital Signs: Vital Signs - 24 hr 08/09/23 12:06 08/09/23 14:06 Temperature 98.0 F 98.0 F Pulse Rate 66 70 Respiratory Rate 16 16 Blood Pressure 133/85 133/85 Pulse Oximetry 99 99 Oxygen Delivery Method Room Air BMI result Body Mass Index 22.4 Const General: cooperative, no acute distress, alert and awake Nutritional Appearance: well nourished Orientation/consciousness: patient oriented x3 Limitations: no limitations HENMT Head: Yes normal to inspection and Yes atraumatic Ears: hearing grossly normal bilaterally and external ears normal General nose exam: Normal external nose present, no nasal discharge noted and no epistaxis Face and sinus: Yes normal facial exam, No abrasion and No laceration Mouth: Normal oral and palatal mucosa present, no drooling and no muffled voice Eyes General: appearance normal, both eyes and all related structures Periorbital: periorbital findings normal Eyelids: Yes eyelids normal Conjunctivae: conjunctivae normal Pupils: Equal, round and reactive pupils present EOM: EOMs intact bilaterally Neck Neck: Yes normal visual inspection, Yes full ROM and Yes no lymphadenopathy Chest Chest palpation & inspection: normal inspection of the chest Resp Effort & Inspection: normal respiratory effort and able to speak in complete sentences GI Inspection: Yes normal to inspection Neuro General: patient oriented x3 and moves all extremities Cranial nerves: Yes Equal, round and reactive pupils present Cognition (Neuro): normal cognition Motor exam (neuro): 5/5 motor strength present throughout Sensory Exam: Normal double simultaneous stimulation for sensation Coordination: [id number] test normal Extrem General: Yes normal to inspection, Yes full ROM and Yes capillary refill normal Psych Appearance: grossly normal Mental Status: mental status grossly normal Affect: normal affect Attitude: cooperative Thought process: Normal thought process present Thought content: Normal thought content present Insight: Good insight present (Psych) Course Course Course Narrative: This is a Rapid Medical Examination (RME) performed by Sinan Meneses PA-C in triage. Full HPI, ROS, assessment and treatment plan per primary provider in the Main ED. 48 year old with past medical history significant for Ambien use disorder and schizophrenia presents to the ED today requesting ability injection. States he was prescribed this for schizofrenia and [facility] he [facility] been trying to move all of his medications over to [facility] and has been able to receive a majority of them through however has not been able to get his Abilify for a few months now. Reports unclear thoughts and would like to prevent anything going forward . Denies SI/HI. Denies VH/TH/AH. Plan: basic labs Medications Administered Discontinued Medications Generic Name Dose Route Start Last Admin Trade Name Aliyah PRN Reason Stop Dose Admin Aripiprazole 5 mg 08/09/23 13:42 08/09/23 14:03 Aripiprazole 5 Mg Tablet PO 08/09/23 13:43 5 mg ONCE ONE Administration Medical Decision Making Medical Decision Making [facility] Narrative: Patient is a 48 year old assigned male at with a history of schizophrenia presenting to the emergency department today requesting an abilify injection. Patient's physical exam was unremarkable. Patient's blood work was unremarkable. I explained my physical exam findings as well as all test results to the patient. I answered all questions asked by the patient. I had a lengthy discussion with Dr. Carmen, my attending physician, and the head of the Pharmacy. It was decided by Dr. Carmen, my attending physician, that the patient would be given PO Abilify rather than the injectable due to high cost and concern of future precedence of care this may set. I will start the patient on PO Abilify 5mg for the PCP to titrate up as they see fit, given the patient has been off of this medication for at least 90 days. I stressed the importance of the patient taking his medication as prescribed. I stressed the importance of the patient following up with his primary care provider. I stressed the importance of the patient returning to the emergency department immediately if his symptoms were to worsen or if he were to develop any dizziness, shortness of breath, difficulty breathing, chest pain, blurry vision, loss of vision, nausea, vomiting, abdominal pain, fever, chills, back pain, or any other complaints. Patient verbalized agreement and understanding with this treatment plan and discharge. Differential Diagnosis Differential Diagnoses: The differential diagnosis associated with the presentation includes Schizophrenia Admission/Observation Consideration of admission/observation: Escalation of care including admission/observation considered Patient would have been admitted to the hospital had his work up had any findings where hospital admission was appropriate and his clinical presentation warranted hospital admission. Lab Data [facility] Lab Attestation statement: I reviewed the patient's lab results. My interpretation of these results are in the [facility] Rationale portion of this note. 08/09/23 12:19 08/09/23 12:19 Labs: Lab Results 08/09/23 Range/Units 12:19 WBC 6.6 (4.8-10.8) X10*3/uL RBC 4.57 L (4.60-5.80) X10*6/uL Hgb 14.1 (14.0-18.0) g/dl Hct 40.9 L (42.0-52.0) % MCV 89.5 (80.0-98.0) fL MCH 30.9 (27.0-33.0) pg MCHC 34.5 (31.0-36.0) g/dl RDW 12.9 (11.0-16.0) % Plt Count 343 D (160-400) X10*3/uL MPV 8.7 L (9.4-12.4) fL Immature Gran % (Auto) 0.3 (0.0-0.4) % Neut % (Auto) 57.2 (45-73) % Lymph % (Auto) 26.3 (20-40) % [place] % (Auto) 11.0 (2-11) % Eos % (Auto) 4.1 H (0-4) % Baso % (Auto) 1.1 (0-2) % Lymph # (Auto) 1.7 (1.2-4.9) X10*3/uL [place] # (Auto) 0.7 (0.1-1.2) X10*3/uL Eos # (Auto) 0.3 (0.0-0.4) X10*3/uL Baso # (Auto) 0.1 (0.0-0.2) X10*3/uL Abs Immat Gran (auto) 0.02 (0.00-0.03) X10*3/uL Absolute Neuts (auto) 3.8 (2.0-8.3) x10*3/uL Absolute Nucleated RBC 0.000 (0.0-0.012) X10*3/uL Nucleated RBC % (auto) 0.0 (0.0-0.2) /100WBC Sodium 143 (135-145) mmol/L Potassium 3.7 (3.3-5.1) mmol/L Chloride 108 (96-108) mmol/L Carbon Dioxide 29 (22-29) mmol/L Anion Gap 10 L (12-20) BUN 16 (9-16) mg/dL Creatinine 0.88 (0.5-1.4) mg/dL Estim Creat Clear Calc 95.9 Estimated GFR > 60 Random Glucose 99 (60-115) mg/dL Calcium 9.2 (8.4-10.2) mg/dL Magnesium 2.2 (1.6-2.6) mg/dL Total Bilirubin 0.3 (0.0-1.0) mg/dL AST 19 (5-37) U/L ALT 15 (0-40) U/L Alkaline Phosphatase 74 (39-117) U/L Total Protein 6.2 L (6.5-8.0) g/dL Albumin 3.9 (3.5-5.0) g/dL Lipase 33 (8-78) U/L Discharge Plan Discharge Clinical Impression: Schizophrenia Patient Disposition: Home, Self-Care Instructions: Schizophrenia (ED) Additional Instructions: Follow up with your primary care provider. Return to the emergency department immediately if your symptoms worsen or if you develop any dizziness, shortness of breath, difficulty breathing, chest pain, blurry vision, loss of vision, nausea, vomiting, abdominal pain, fever, chills, back pain, or any other complaints. Prescriptions: New aripiprazole [Abilify] 5 mg tablet 5 mg PO DAILY Qty: 30 0RF No Action amoxicillin-pot clavulanate 875-125 mg tablet 1 tab PO BID Qty: 20 0RF tramadol 50 mg tablet 50 mg PO Q6H PRN (Reason: pain) Qty: 20 0RF cyclobenzaprine 10 mg tablet 10 mg PO Q8H Qty: 20 0RF ibuprofen 600 mg tablet 600 mg PO Q6H PRN (Reason: fever or pain) Qty: 30 0RF omeprazole 20 mg capsule,delayed release(DR/EC) 20 mg PO DAILY Qty: 7 0RF Referrals: Debi Porras MD [Primary Care Provider] - Interventions: ED Discharge Assessment Last Done: 08/09/23 14:06 Discharge Date/Time: 08/09/23 14:10 Print Language: Vietnamese
[2023-08-09 12:23] LABS: MANUAL DIFF FLAG NO
[2023-08-09 12:27] LABS: Basophils Absolute Auto 0.1 X10*3/uL (0.0-0.2); Basophils Percent Auto 1.1 % (0-2); Eosinophils Absolute Auto 0.3 X10*3/uL (0.0-0.4); Eosinophils Percent Auto 4.1 % (0-4); Hematocrit 40.9 % (42.0-52.0); Hemoglobin 14.1 g/dl (14.0-18.0); Imm Gran Abs Auto 0.02 X10*3/uL (0.00-0.03); Imm Gran Pct Auto 0.3 % (0.0-0.4); Lymphocytes Absolute Auto 1.7 X10*3/uL (1.2-4.9); Lymphocytes Percent Auto 26.3 % (20-40); Mean Corpuscular HGB Conc 34.5 g/dl (31.0-36.0); Mean Corpuscular Hemoglobin 30.9 pg (27.0-33.0); Mean Corpuscular Volume 89.5 fL (80.0-98.0); Mean Platelet Volume 8.7 fL (9.4-12.4); Monocytes Absolute Auto 0.7 X10*3/uL (0.1-1.2); Neutrophils Absolute Auto 3.8 x10*3/uL (2.0-8.3); Neutrophils Percent Auto 57.2 % (45-73); Platelet Count 343 X10*3/uL (160-400); Red Blood Count 4.57 X10*6/uL (4.60-5.80); Red Cell Distribution Width 12.9 % (11.0-16.0); White Blood Count 6.6 X10*3/uL (4.8-10.8)
[2023-08-09 12:41] LABS: Alanine Aminotransferase 15 U/L (0-40); Albumin Level 3.9 g/dL (3.5-5.0); Alkaline Phosphatase 74 U/L (39-117); Anion Gap 10 (12-20); Aspartate Amino Transferase 19 U/L (5-37); Bilirubin Total 0.3 mg/dL (0.0-1.0); Blood Urea Nitrogen 16 mg/dL (9-16); Calcium 9.2 mg/dL (8.4-10.2); Carbon Dioxide 29 mmol/L (22-29); Chloride 108 mmol/L (96-108); Creatinine Clr Calc Pharmacy 95.9; Estimated Glomerular Filt Rate > 60; Glucose Random 99 mg/dL (60-115); Lipase 33 U/L (8-78); Magnesium 2.2 mg/dL (1.6-2.6); Potassium 3.7 mmol/L (3.3-5.1); Sodium 143 mmol/L (135-145); Total Protein 6.2 g/dL (6.5-8.0)
[2023-08-09] MEDS: ARIPiprazole 5 MG TABLET PO (14:03)
[2023-08-09 14:06] VITALS: BP 133/85; PULSE 70; RESP 16; TEMP 36.7; O2SAT 99
== END 2023-08-09 14:10 | disposition home or self-care (01) ==
PROVIDERS: Physician Assistant Medical; Emergency Provider Emergency Medicine; PCP Internal Medicine
DX: F20.9 Schizophrenia, unspecified (principal)
CPT/HCPCS: 36415; 80053; 83690; 83735; 85025; 99282; 99283

== ENCOUNTER 2023-08-18 13:09 | Emergency (ER) | payer OTHER, SELFPAY ==
[2023-08-18 13:37] VITALS: BP 150/80; PULSE 79; O2SAT 96
--- NOTE | 2023-08-18 13:42 | ED_ITS ---
HPI - Psych General Stated Complaint: FTT/N/DIZZY, NON COMPLIANT WITH MEDS PER EMS Time Seen by Provider: 08/18/23 13:30 Source: patient Mode of arrival: EMS Limitations: no limitations History of Present Illness ED Provider: Dr. Tigre Weinberg Related Data Previous Rx's ?Medication ?Instructions ?Recorded cyclobenzaprine 10 mg tablet 10 mg PO Q8H #20 tabs 12/31/22 ibuprofen 600 mg tablet 600 mg PO Q6H PRN fever or pain 12/31/22 #30 tabs amoxicillin 875 mg-potassium 1 tab PO BID #20 tabs 05/23/23 clavulanate 125 mg tablet tramadol 50 mg tablet 50 mg PO Q6H PRN pain #20 tabs 05/23/23 omeprazole 20 mg capsule,delayed 20 mg PO DAILY #7 caps 06/29/23 release aripiprazole 5 mg tablet (Abilify) 5 mg PO DAILY #30 tabs 08/09/23 Allergies Allergy/AdvReac Type Severity Reaction Status Date / Time Sulfa (Sulfonamide Allergy Rash Verified 08/09/23 12:12 Antibiotics) [facility] Social History Social History Alcohol intake: current Alcohol intake frequency: a few times a week Discharge Plan Discharge Clinical Impression: Cocaine use, Heroin use, Schizoaffective disorder Patient Disposition: Home, Self-Care Additional Instructions: Continue taking medications as prescribed by your providers. At this time, you do not want us to do any blood work or testing but you are interested in getting help with your cocaine and opiate use disorder Please call the [facility] today to discuss further treatment. They also have walk-in hours Monday through Monday as listed on the pamphlet that I gave you. Follow-up with your doctor in 2 days. Please return to the emergency department if your symptoms get worse or if you develop any symptoms that are concerning to you. Prescriptions: No Action amoxicillin-pot clavulanate 875-125 mg tablet 1 tab PO BID Qty: 20 0RF tramadol 50 mg tablet 50 mg PO Q6H PRN (Reason: pain) Qty: 20 0RF cyclobenzaprine 10 mg tablet 10 mg PO Q8H Qty: 20 0RF ibuprofen 600 mg tablet 600 mg PO Q6H PRN (Reason: fever or pain) Qty: 30 0RF omeprazole 20 mg capsule,delayed release(DR/EC) 20 mg PO DAILY Qty: 7 0RF aripiprazole [Abilify] 5 mg tablet 5 mg PO DAILY Qty: 30 0RF Print Language: Indonesian
[2023-08-18 13:49] VITALS: BP 102/63; PULSE 88; RESP 18; TEMP 36.7; O2SAT 95; BMI 24.0
[2023-08-18 14:13] VITALS: BP 102/63; PULSE 88; RESP 18; TEMP 36.7; O2SAT 95
--- NOTE | 2023-08-18 14:14 | PC.NURSE ---
plan for pt to d/c to [facility] w brother for transport. pt given reese rachael, a sandwich and crackers.
== END 2023-08-18 14:15 | disposition home or self-care (01) ==
PROVIDERS: Emergency Provider Emergency Medicine Emergency Medical Services; PCP Internal Medicine
DX: R42 Dizziness and giddiness (principal); F14.90 Cocaine use, unspecified, uncomplicated; F19.90 Other psychoactive substance use, unspecified, uncomplicated; F25.9 Schizoaffective disorder, unspecified; Z79.899 Other long term (current) drug therapy
CPT/HCPCS: 99282

== ENCOUNTER 2023-09-05 13:26 | Outpatient (REF) | payer OTHER, SELFPAY ==
[2023-09-05 16:35] LABS: Alanine Aminotransferase 17 U/L (0-40); Albumin Level 4.1 g/dL (3.5-5.0); Alkaline Phosphatase 82 U/L (39-117); Aspartate Amino Transferase 28 U/L (5-37); Bilirubin Direct < 0.2 mg/dL (0.0-0.5); Bilirubin Total 0.2 mg/dL (0.0-1.0); Total Protein 6.4 g/dL (6.5-8.0)
[2023-09-06 09:02] LABS: Hepatitis A Antibody IgG REACTIVE (Nonreactive)
[2023-09-06 09:03] LABS: HBS Num1 216.57 mIU/mL (0-7.99); HBc Num1 0.26 S/CO (0.00-0.79); HBsAGNum1 0.26 S/CO (0.00-0.99); HIV AB/AG Nonreactive (Nonreactive); HIV Num 1 0.07 S/CO (0.00-0.99); Hepatitis B Core Antibody Nonreactive (Nonreactive); Hepatitis B Surface Antigen Negative (Negative); ~HepC Num1 0.27 S/CO (0.00-0.79); ~Hepatitis B Surface Antibody REACTIVE (Nonreactive); ~Hepatitis C Antibody Nonreactive (Nonreactive)
[2023-09-07 06:53] LABS: RPR Rapid Plasma Reagin NON-REACTIVE (NON-REACTIVE)
[2023-09-08 05:54] LABS: TS Negative Control Passed; TS Panel A 0; TS Panel B 0; TS Positive Control Passed; TSpotTB Negative (Negative)
== END 2023-09-05 13:27 | disposition home or self-care (01) ==
LOC: HO.HHCL 13:26
PROVIDERS: Visit Provider Emergency Medicine
DX: F11.20 Opioid dependence, uncomplicated (principal)
CPT/HCPCS: 36415; 80076; 86481; 86592; 86704; 86706; 86708; 86803; 87340; 87389

== ENCOUNTER 2024-02-17 13:17 | Emergency (ER) | payer OTHER, SELFPAY ==
--- NOTE | ~2024-02-17 | XR_ITS ---
CLINICAL HISTORY: cough 2 view chest x-ray Comparison: None Findings: No consolidation, pleural effusion or pneumothorax. Heart size is normal. No acute fracture. IMPRESSION: Bronchial wall thickening with no superimposed focal infiltrate or consolidation. This document has been electronically signed by: Blanca Eastman DO on 02/17/2024 14:42:10
[2024-02-17 13:23] VITALS: BP 106/57; PULSE 95; RESP 20; TEMP 38.1; O2SAT 96; BMI 21.3
--- NOTE | 2024-02-17 14:17 | ED_ITS ---
HPI - General Adult General Chief complaint: General Medical Stated complaint: +COVID Time Seen by Provider: 02/17/24 14:17 Source: patient, RN notes reviewed and old records reviewed Mode of arrival: ambulatory History of Present Illness ED Provider: Sakina Hunt PA-C HPI narrative: 48-year-old male with a past medical history of schizophrenia and substance use disorder, presenting to the ED c/o cough, rhinorrhea & myalgias x 3 days. Admits tested positive on home COVID test yesterday. Denies fever, chills, CP/SOB, travel, sick contacts, pedal edema. Related Data Previous Rx's ?Medication ?Instructions ?Recorded cyclobenzaprine 10 mg tablet 10 mg PO Q8H #20 tabs 12/31/22 ibuprofen 600 mg tablet 600 mg PO Q6H PRN fever or pain 12/31/22 #30 tabs amoxicillin 875 mg-potassium 1 tab PO BID #20 tabs 05/23/23 clavulanate 125 mg tablet tramadol 50 mg tablet 50 mg PO Q6H PRN pain #20 tabs 05/23/23 omeprazole 20 mg capsule,delayed 20 mg PO DAILY #7 caps 06/29/23 release aripiprazole 5 mg tablet (Abilify) 5 mg PO DAILY #30 tabs 08/09/23 acetaminophen 500 mg tablet 500 mg PO Q6H PRN fever or pain 02/17/24 (Tylenol Extra Strength) #14 tabs benzonatate 100 mg capsule 100 mg PO TID PRN cough #14 caps 02/17/24 ibuprofen 400 mg tablet 400 mg PO Q6H PRN fever or pain 02/17/24 #14 tabs Allergies Allergy/AdvReac Type Severity Reaction Status Date / Time Sulfa (Sulfonamide Allergy Rash Verified 02/17/24 13:24 Antibiotics) Review of Systems Review of Systems: Yes all other systems are reviewed and are negative Constitutional: Constitutional: Reports as per [facility] Past Medical History Attestation statement: The following information was validated with the patient. Source: old records reviewed Social History Social History Alcohol intake: current Alcohol intake frequency: does not drink Physical Exam ED Vital Signs: Vital Signs - 24 hr 02/17/24 13:23 Temperature 100.6 F H Pulse Rate 95 Respiratory Rate 20 Blood Pressure 106/57 L Pulse Oximetry 96 Oxygen Delivery Method Room Air BMI result Body Mass Index 21.3 Const General: cooperative, healthy appearing and no acute distress Orientation/consciousness: patient oriented x3 Limitations: no limitations HENMT Head: Yes normal to inspection and Yes atraumatic Ears: hearing grossly normal bilaterally General nose exam: Normal external nose present Face and sinus: Yes normal facial exam Mouth: Normal oral and palatal mucosa present and no drooling Throat: Yes posterior oropharynx normal, Yes tonsils normal and Yes uvula midline Eyes General: appearance normal, both eyes and all related structures EOM: EOMs intact bilaterally Neck Neck: Yes normal visual inspection and Yes no meningeal signs Resp Effort & Inspection: normal respiratory effort, no respiratory distress and no stridor Auscultation: no crackles, no rales, no rhonchi and no wheezes Cardio Rate: regular rate GI Inspection: Yes normal to inspection Skin Rashes: no rashes Wounds: no wounds Neuro General: patient oriented x3, tone normal and no meningeal signs Cranial nerves: Yes CN's II-XII intact bilaterally Gait exam (Neuro): Normal gait present Extrem General: Yes normal to inspection Course Course Course Narrative: -COVID-19 positive XR chest 2V IMPRESSION: Bronchial wall thickening with no superimposed focal infiltrate or consolidation. Results discussed with patient including worrisome signs and symptoms and strict return precautions, and when to return to the emergency department. They verbalized understanding and feel safe for discharge at this time. Medications Administered Discontinued Medications Generic Name Dose Route Start Last Admin Trade Name Freq PRN Reason Stop Dose Admin Acetaminophen 650 mg 02/17/24 14:37 02/17/24 14:56 Acetaminophen 325 Mg Tablet PO 02/17/24 14:38 650 mg ONCE ONE Administration Medical Decision Making Medical Decision Making [facility] Narrative: 48-year-old male with a past medical history of schizophrenia and substance use disorder, presenting to the ED c/o cough, rhinorrhea & myalgias x 3 days. On exam low-grade temp 100.6 degrees, NAD, nontoxic appearing, lungs CTA. Talking in complete sentences. Concern for viral illness including COVID-19. Rule out pneumonia vs bronchitis. Low suspicion for ACS/PE or DVT Plan: Viral testing, CXR Please refer to course for remaining clinical decision making, interpretation of labs/imaging results, and discussions with consultants and/or family members. Differential Diagnosis Differential Diagnoses: The differential diagnosis associated with the prese ntation includes As above Admission/Observation Consideration of admission/observation: Escalation of care including admission/ observation considered Lab Data MDM Lab Attestation statement: I reviewed the patient's lab results. Labs: Lab Results 02/17/24 Range/Units 13:37 Influenza Type A (PCR) NEGATIVE (Negative) Influenza Type B (PCR) NEGATIVE (Negative) RSV RNA Qual (PCR) NEGATIVE (Negative) SARS-CoV-2 RNA (RT-PCR) POSITIVE A (Negative) Independent Interpretation I performed an independent interpretation of an: Plain X-Ray Radiology Impression Discussion of test interpretation with radiology: I have reviewed the radiologist's reading. External Record Review External record reviewed: Inpatient record, Office record, Outpatient record, Prior outpatient labs, Prior outpatient radiology, Primary care record and Outside ED record Tests considered The following testing was considered but not selected: As above Prescription Management I considered prescription management with: Pain Medication, Antiviral and Antibiotic Chronic Conditions Patient?s care impacted by: Other Social Determinants Patient?s care significantly limited by Social Determinants of Health including: Inadequate housing, Low income, Alcoholism and drug addiction in family, Problems related to primary support group, Unemployment and Other Social Determinant of Health Discharge Plan Discharge Clinical Impression: COVID-19 Patient Disposition: Home, Self-Care Instructions: COVID-19 (Coronavirus Disease 2019) (ED) Additional Instructions: YOU HAVE COVID-19 Please take Tylenol and Motrin as needed for fever/body aches Tessalon Perles for cough, take as needed At this time you will be okay for discharge. Please self isolate for 5 days. Do not expose yourself to others. You may not go to work or school. Please continue to follow cold instructions and wash your hands frequently. You may take Tylenol / Motrin as directed on the bottle for pain or fever. If you have constant or persistent shortness of breath, fever unresolved with medications, chest pain, or your unable to eat or drink please return to the ED CDC Guidelines for home isolation: - Stay away from others - WEAR A MASK if you are sick AND STAY HOME - Cover your mouth and nose with a tissue when you cough or sneeze. Dispose of tissues in a lined trash can and wash your hands immediately with soap and water for at least 20 seconds. If soap and water are not available, clean hands with alcohol-based hand fabrication and layout craftsman that contains at least 60% alcohol. - Clean your hands often with soap and water for at least 20 seconds - Avoid touching your eyes, nose and mouth with unwashed hands - Do not share dishes, drinking glasses, cups, eating utensils, towels, or bedding with other people in your home. After using these items, wash them thoroughly with soap and water or put in the instrumentation controls engineer. - Clean high-touch surfaces in your isolation area ( sick room and bathroom) every day; let a caregiver clean and disinfect high-touch surfaces in other areas of the home. Clean the area or item with soap and water or another detergent if it is dirty. Then, use a household disinfectant. - Limit contact with pets and animals: If you must care for a pet, wash your hands before and after interacting with them) Prescriptions: New acetaminophen [Tylenol Extra Strength] 500 mg tablet 500 mg PO Q6H PRN (Reason: fever or pain) Qty: 14 0RF benzonatate 100 mg capsule 100 mg PO TID PRN (Reason: cough) Qty: 14 0RF ibuprofen 400 mg tablet 400 mg PO Q6H PRN (Reason: fever or pain) Qty: 14 0RF No Action amoxicillin-pot clavulanate 875-125 mg tablet 1 tab PO BID Qty: 20 0RF tramadol 50 mg tablet 50 mg PO Q6H PRN (Reason: pain) Qty: 20 0RF cyclobenzaprine 10 mg tablet 10 mg PO Q8H Qty: 20 0RF ibuprofen 600 mg tablet 600 mg PO Q6H PRN (Reason: fever or pain) Qty: 30 0RF omeprazole 20 mg capsule,delayed release(DR/EC) 20 mg PO DAILY Qty: 7 0RF aripiprazole [Abilify] 5 mg tablet 5 mg PO DAILY Qty: 30 0RF Referrals: Physician,None [Primary Care Provider] - Interventions: ED Discharge Assessment Last Done: 02/17/24 15:19 Discharge Date/Time: 02/17/24 15:20 Print Language: Romansh
[2024-02-17 14:21] LABS: Influenza A PCR NEGATIVE (Negative); Influenza B PCR NEGATIVE (Negative); Resp Syncy Virus RNA Qual PCR NEGATIVE (Negative); SARS COV2 PCR INHOUSE POSITIVE (Negative)
[2024-02-17 14:48] VITALS: TEMP 39.1
[2024-02-17] MEDS: Acetaminophen 325 MG TABLET 650 MG PO (14:56)
[2024-02-17 15:15] VITALS: TEMP 37.8
[2024-02-17 15:19] VITALS: BP 120/60; PULSE 80; RESP 14; TEMP 37.8; O2SAT 98
== END 2024-02-17 15:20 | disposition home or self-care (01) ==
PROVIDERS: Emergency Provider Emergency Medicine
DX: U07.1 COVID-19 (principal)
CPT/HCPCS: 0241U; 71046; 99283; 99284

== ENCOUNTER → 2024-02-17 14:28 | Outpatient (BNV) | payer OTHER, SELFPAY | PROVIDERS: Emergency Provider Emergency Medicine; Visit Provider Radiology Diagnostic Radiology | DX: U07.1 COVID-19 (principal); R05.9 Cough, unspecified | CPT/HCPCS: 71046 ==

== ENCOUNTER 2024-09-03 03:28 | Emergency (ER) | payer OTHER, SELFPAY ==
[2024-09-03 03:32] VITALS: BP 116/98; BP 151/91; PULSE 73; PULSE 88; RESP 16; TEMP 37; O2SAT 98; BMI 22.8
[2024-09-03 05:45] VITALS: BP 144/83; PULSE 68; RESP 17; TEMP 37.1; O2SAT 96
--- NOTE | 2024-09-03 06:27 | ED.DENTAL ---
HPI - Dental/Oral General Chief complaint: Dental/Oral Stated complaint: toothache Time Seen by Provider: 09/03/24 06:22 Source: patient Mode of arrival: ambulatory Limitations: no limitations History of Present Illness ED Provider: Dr. Nargis Banda HPI Narrative: Patient comes to the emergency room complaining of dental pain. Patient states it has been present for 8 hours, worse in the mandibular side on the right. Patient states that Motrin has not helped. Denies fever or chills. Patient states that any time that he tries to choose and put it hurts. Related Data Previous Rx's ?Medication ?Instructions ?Recorded cyclobenzaprine 10 mg tablet 10 mg PO Q8H #20 tabs 12/31/22 ibuprofen 600 mg tablet 600 mg PO Q6H PRN fever or pain 12/31/22 #30 tabs amoxicillin 875 mg-potassium 1 tab PO BID #20 tabs 05/23/23 clavulanate 125 mg tablet tramadol 50 mg tablet 50 mg PO Q6H PRN pain #20 tabs 05/23/23 omeprazole 20 mg capsule,delayed 20 mg PO DAILY #7 caps 06/29/23 release aripiprazole 5 mg tablet (Abilify) 5 mg PO DAILY #30 tabs 08/09/23 acetaminophen 500 mg tablet 500 mg PO Q6H PRN fever or pain 02/17/24 (Tylenol Extra Strength) #14 tabs benzonatate 100 mg capsule 100 mg PO TID PRN cough #14 caps 02/17/24 ibuprofen 400 mg tablet 400 mg PO Q6H PRN fever or pain 02/17/24 #14 tabs amoxicillin 500 mg capsule 500 mg PO TID 7 days #21 caps 09/03/24 ketorolac 10 mg tablet 10 mg PO Q8H #12 tabs 09/03/24 Allergies Allergy/AdvReac Type Severity Reaction Status Date / Time Sulfa (Sulfonamide Allergy Rash Verified 09/03/24 03:39 Antibiotics) Review of Systems Review of Systems: Constitutional : No Weight loss, No Fever, No Chills, No Night Sweats, No Fatigue, No Malaise ENT/Mouth : Complaining of dental pain in the right mandibular side, No Hearing loss, No Ear Pain, No Nasal Congestion, No Sinus Pain, No Hoarseness, No sore throat, No Rhinorrhea, No Swallowing Difficulty Eyes: No Eye Pain, No Swelling, No Redness, No Foreign Body, No Discharge, No Vision Changes Cardiovascular : No Chest Pain, No SOB, No Dyspnea on Exertion, No Orthopnea, No Edema, No Palpitations Respiratory : No Cough, No Sputum, No Wheezing, No Smoke Exposure, No Dyspnea Gastrointestinal : No Nausea, No Vomiting, No Diarrhea, No Constipation, No abdominal Pain, No Hematochezia, No Melena Genitourinary : no irregular bleeding, No Dysuria, No Urinary Frequency, No Hematuria, No Urinary Incontinence, No Urgency, No Flank Pain, No Urinary Flow Changes, No Hesitancy Musculoskeletal : No joint pain, No Myalgias, No Joint Swelling Skin : No Skin Lesions, No rash Neuro : No Weakness, No Numbness, No Paresthesias, No Loss of Consciousness, No Dizziness, No Headache Psych : No Anxiety/Panic, No Depression, No SI/HI/AH/VH, No Social Issues, Heme/Lymph: No Bruising, No Bleeding,No Lymphadenopathy Endocrine : No Polyuria, No Polydipsia, No Temperature Intolerance [facility] Social History Social History Alcohol intake: current Alcohol intake frequency: does not drink Advance Directives: No Advance Directives Information Provided: Yes Physical Exam Vital Signs: Vital Signs: Last Vital Signs Temp 98.7 F 09/03/24 05:45 Pulse 68 09/03/24 05:45 Resp 17 09/03/24 05:45 BP 144/83 H 09/03/24 05:45 Pulse Ox 96 09/03/24 05:45 O2 Del Method Room Air 09/03/24 05:45 BMI result Body Mass Index 22.8 Const: Other: Appearance: Alert. Oriented X3. No acute distress. Eyes: Pupils equal, round and reactive to light. ENT: Pharynx normal. Patient has poor dentition, worse on the right mandibular side, cracked teeth in both mandibular maxillary right side. No obvious abscesses that could possibly be drained Neck: Normal inspection. Neck supple. No lymph nodes noted. No crepitus CVS: Normal heart rate and rhythm. Pulses normal. Normal S1 and S2 Respiratory: No respiratory distress. Breath sounds normal. No Wheezing. No rales Abdomen: Soft and nontender. No rigidity. No distention. Skin: Skin warm and dry. Normal skin color. Normal skin turgor. Extremities: No lower extremity edema. No Lacerations. No Rash Neuro: Oriented X 3. No motor deficit. No sensory deficit. Moving all extremities. No slurred speech. CN 2 through 12 grossly intact Psych: calm, cooperative, normal affect Course Course Course Narrative: Patient comes to emergency room complaining of dental pain. No fever or chills. Patient has a dentist appointment pending Medical Decision Making Medical Decision Making MDM Narrative: No abscesses were visualized. Patient will need p.o. antibiotics. Patient was given the 1st dose of ketorolac in the emergency room and amoxicillin. Discharge Plan Discharge Clinical Impression: Toothache Patient Disposition: Home, Self-Care Instructions: Toothache (ED) Additional Instructions: Please follow-up with your primary care physician tomorrow. If you have any worsening or new symptoms, please return to the emergency room or call 911 Prescriptions: New ketorolac 10 mg tablet 10 mg PO Q8H Qty: 12 0RF Rx Instructions: maximum total duration of 5 days from all oral, intranasal, or parenteral formulations amoxicillin 500 mg capsule 500 mg PO TID 7 Days Qty: 21 0RF No Action amoxicillin-pot clavulanate 875-125 mg tablet 1 tab PO BID Qty: 20 0RF tramadol 50 mg tablet 50 mg PO Q6H PRN (Reason: pain) Qty: 20 0RF acetaminophen [Tylenol Extra Strength] 500 mg tablet 500 mg PO Q6H PRN (Reason: fever or pain) Qty: 14 0RF benzonatate 100 mg capsule 100 mg PO TID PRN (Reason: cough) Qty: 14 0RF ibuprofen 400 mg tablet 400 mg PO Q6H PRN (Reason: fever or pain) Qty: 14 0RF cyclobenzaprine 10 mg tablet 10 mg PO Q8H Qty: 20 0RF ibuprofen 600 mg tablet 600 mg PO Q6H PRN (Reason: fever or pain) Qty: 30 0RF omeprazole 20 mg capsule,delayed release(DR/EC) 20 mg PO DAILY Qty: 7 0RF aripiprazole [Abilify] 5 mg tablet 5 mg PO DAILY Qty: 30 0RF Print Language: Azeri
[2024-09-03 06:51] VITALS: BP 144/83; PULSE 68; RESP 17; TEMP 37.1; O2SAT 96
== END 2024-09-03 06:53 | disposition home or self-care (01) ==
PROVIDERS: Emergency Provider Emergency Medicine
DX: K08.89 Other specified disorders of teeth and supporting structures (principal)
CPT/HCPCS: 96372; 99283; 99284; J1885

== ENCOUNTER 2024-09-05 16:32 | Emergency (ER) | payer OTHER, SELFPAY ==
[2024-09-05 16:35] VITALS: BP 114/84; PULSE 92; O2SAT 92
[2024-09-05 16:40] VITALS: BP 114/83; PULSE 88; RESP 18; TEMP 36.1; O2SAT 96; BMI 22.8
--- NOTE | 2024-09-05 16:41 | ED.GENADULT ---
HPI - General Adult General Chief complaint: Dental/Oral Stated complaint: R lower jaw pain Time Seen by Provider: 09/05/24 16:54 Source: patient, EMS and RN notes reviewed Mode of arrival: EMS Limitations: no limitations History of Present Illness ED Provider: Ebony Bejarano PA-C HPI narrative: This is a [id number] who presents to the ER with complaints of right lower dental pain. He states that he was seen here 2 days ago and was prescribed amoxicillin and then saw a dentist today who noticed no improvement on the amoxicillin and sent over clindamycin to his pharmacy. He will have teeth pulled but needs to complete the full course of abx. He states that he was unable to pick this up as his health insurance was cancelled. He denies any fevers, chills, difficulty swallowing or breathing. No other complaints or concerns at this time. MD complaint: dental pain Onset (ago): day(s) Relieving factors: none Exacerbating factors: none Associated symptoms: denies other symptoms Treatments prior to arrival: none Related Data Previous Rx's ?Medication ?Instructions ?Recorded cyclobenzaprine 10 mg tablet 10 mg PO Q8H #20 tabs 12/31/22 ibuprofen 600 mg tablet 600 mg PO Q6H PRN fever or pain 12/31/22 #30 tabs amoxicillin 875 mg-potassium 1 tab PO BID #20 tabs 05/23/23 clavulanate 125 mg tablet tramadol 50 mg tablet 50 mg PO Q6H PRN pain #20 tabs 05/23/23 omeprazole 20 mg capsule,delayed 20 mg PO DAILY #7 caps 06/29/23 release aripiprazole 5 mg tablet (Abilify) 5 mg PO DAILY #30 tabs 08/09/23 acetaminophen 500 mg tablet 500 mg PO Q6H PRN fever or pain 02/17/24 (Tylenol Extra Strength) #14 tabs benzonatate 100 mg capsule 100 mg PO TID PRN cough #14 caps 02/17/24 ibuprofen 400 mg tablet 400 mg PO Q6H PRN fever or pain 02/17/24 #14 tabs amoxicillin 500 mg capsule 500 mg PO TID 7 days #21 caps 09/03/24 naproxen 500 mg tablet 500 mg PO BID PRN pain #14 tabs 09/03/24 clindamycin HCl 300 mg capsule 300 mg PO TID 10 days #30 caps 09/05/24 (Cleocin HCl) ibuprofen 600 mg tablet 600 mg PO Q6H PRN pain #30 tabs 09/05/24 Allergies Allergy/AdvReac Type Severity Reaction Status Date / Time Sulfa (Sulfonamide Allergy Rash Verified 09/05/24 16:42 Antibiotics) Review of Systems Review of Systems: Yes all other systems are reviewed and are negative Constitutional: Constitutional: Reports as per [facility] Social History Social History Alcohol intake: current Alcohol intake frequency: does not drink Advance Directives: No Advance Directives Information Provided: No Do you have a plan to hurt others: No Plan Physical Exam ED Vital Signs: Vital Signs - 24 hr 09/05/24 16:40 Temperature 97.0 F Pulse Rate 88 Respiratory Rate 18 Blood Pressure 114/83 Pulse Oximetry 96 Oxygen Delivery Method Room Air BMI result Body Mass Index 22.8 Const General: cooperative, comfortable and no acute distress Orientation/consciousness: patient oriented x3 Limitations: no limitations HENMT Other: dentition in poor repair, tooth #27 with decay, no gingival fluctuance or induration, speaking in full sentences. No significant right sided facial swelling. No trismus, drooling or dysphonia Head: Yes normal to inspection, Yes normocephalic and Yes atraumatic Ears: hearing grossly normal bilaterally General nose exam: Normal external nose present Face and sinus: Yes normal facial exam Mouth: Normal oral and palatal mucosa present, oropharynx normal and moist mucous membranes Throat: Yes posterior oropharynx normal Eyes General: appearance normal, both eyes and all related structures Eyelids: Yes eyelids normal Conjunctivae: conjunctivae normal Sclerae: sclerae normal Pupils: Equal, round and reactive pupils present EOM: EOMs intact bilaterally Neck Neck: Yes normal visual inspection, Yes full ROM and Yes no lymphadenopathy Lymphatic: no lymphadenopathy noted Chest Chest palpation & inspection: normal inspection of the chest Resp Effort & Inspection: normal respiratory effort and able to speak in complete sentences Auscultation: clear to auscultation bilaterally, no crackles, no rales, no rhonchi and no wheezes Cardio Rate: regular rate Rhythm: regular rhythm Heart sounds: S1 normal heart sound present and S2 normal heart sound present GI Inspection: Yes normal to inspection Skin General skin exam: no rashes or lesions noted Trauma: no lacerations or abrasions Wounds: no wounds Neuro General: patient oriented x3 and moves all extremities Cranial nerves: Yes Equal, round and reactive pupils present Extrem General: Yes normal to inspection Right upper extremity: normal to inspection Left upper extremity: normal to inspection Right lower extremity: normal to inspection Left lower extremity: normal to inspection Medications Administered Discontinued Medications Generic Name Dose Route Start Last Admin Trade Name Freq PRN Reason Stop Dose Admin Acetaminophen 975 mg 09/05/24 17:17 09/05/24 17:24 Acetaminophen 325 Mg Tablet PO 09/05/24 17:18 975 mg ONCE ONE Administration Ketorolac Tromethamine 15 mg 09/05/24 17:17 09/05/24 17:24 Ketorolac Tromethamine 15 Mg/Ml Vial IM 09/05/24 17:18 15 mg ONCE ONE Administration Medical Decision Making Medical Decision Making [facility] Narrative: This is a [id number]-male who presents to the ER with concerns for dental infection. Previously on amox but dentist wanted him to switch over, this abx was sent to his pharmacy but his health insurance was cancelled therefore he could not fill. Right lower dentition in poor repair. Sent over clindamycin and tylenol to [facility] pharmacy who were able to fill these rx's. Given dose or toradol here in the ED for pain. Given return precautions, he understands and agrees with plan, pt stable for d.c Differential Diagnosis Differential Diagnoses: The differential diagnosis associated with the presentation includes dental pain, abscess, dental caries, dental decay Discharge Plan Discharge Clinical Impression: Tooth ache Patient Disposition: Home, Self-Care Instructions: Toothache (ED) Additional Instructions: You were seen in the emergency department due to dental pain. We sent over your antibiotic to our pharmacy here and gave you your prescriptions. We also gave you Toradol and Tylenol. Please take ibuprofen as directed. Take ibuprofen 600 mg every 6 hours. Take this with food. Finish the entire course of antibiotics. Follow-up with your dentist. If any new or worsening symptoms occur please return for re-evaluation. Prescriptions: New clindamycin HCl [Cleocin HCl] 300 mg capsule 300 mg PO TID 10 Days Qty: 30 0RF ibuprofen 600 mg tablet 600 mg PO Q6H PRN (Reason: pain) Qty: 30 0RF No Action amoxicillin-pot clavulanate 875-125 mg tablet 1 tab PO BID Qty: 20 0RF tramadol 50 mg tablet 50 mg PO Q6H PRN (Reason: pain) Qty: 20 0RF acetaminophen [Tylenol Extra Strength] 500 mg tablet 500 mg PO Q6H PRN (Reason: fever or pain) Qty: 14 0RF benzonatate 100 mg capsule 100 mg PO TID PRN (Reason: cough) Qty: 14 0RF ibuprofen 400 mg tablet 400 mg PO Q6H PRN (Reason: fever or pain) Qty: 14 0RF cyclobenzaprine 10 mg tablet 10 mg PO Q8H Qty: 20 0RF ibuprofen 600 mg tablet 600 mg PO Q6H PRN (Reason: fever or pain) Qty: 30 0RF omeprazole 20 mg capsule,delayed release(DR/EC) 20 mg PO DAILY Qty: 7 0RF aripiprazole [Abilify] 5 mg tablet 5 mg PO DAILY Qty: 30 0RF amoxicillin 500 mg capsule 500 mg PO TID 7 Days Qty: 21 0RF naproxen 500 mg tablet 500 mg PO BID PRN (Reason: pain) Qty: 14 0RF Interventions: ED Discharge Assessment Last Done: 09/05/24 17:29 Discharge Date/Time: 09/05/24 17:30 Print Language: Belarusian
[2024-09-05 17:29] VITALS: BP 114/83; PULSE 88; RESP 18; TEMP 36.1; O2SAT 96
--- NOTE | 2024-09-05 17:29 | PC.NURSE ---
pt medicated per order for 1010 pain, [place] [facility] [place]
== END 2024-09-05 17:30 | disposition home or self-care (01) ==
PROVIDERS: Emergency Provider Emergency Medicine; PCP Physician Assistant
DX: K02.9 Dental caries, unspecified (principal)
CPT/HCPCS: 96372; 99283; 99284; J1885